=== PATIENT | male | born 1965 | race Caucasian/White ===

== ENCOUNTER 2020-06-09 20:15 | Emergency (ER) | payer OTHER ==
[~2020-06-09] VITALS: Ht 177.8 cm; Wt 86.2 kg
[2020-06-09 20:21] VITALS: Ht 177.8 cm; Wt 86.2 kg
[2020-06-09 21:32] LABS: BASOPHIL % 0.5 % (0.2-1.5); PLATELET COUNT 341 x10^3mcL (152-348)
[2020-06-09 21:35] LABS: RED CELL DISTRIBUTION WIDTH 16.5 % (12.1-16.2)
[2020-06-09 21:41] LABS: CALCIUM 8.1 mg/dL (8.5-10.1); CARBON DIOXIDE 27.6 mmol/L (21-32); CHLORIDE SERUM 104 mmol/L (98-107); CREATININE SERUM 1.2 mg/dL (0.7-1.3); GFR1 > 60 mL/min; GLUCOSE SERUM 104 mg/dL (74-106); SODIUM SERUM 139 mmol/L (136-145)
[2020-06-09 21:46] LABS: ALKALINE PHOSPHATASE 111 U/L (46-116); ALT/SGPT 92 U/L (16-63); AST/SGOT 42 U/L (15-37); BILIRUBIN TOTAL 1.1 mg/dL (0.20-1.00); TOTAL PROTEIN, SERUM 6.9 g/dL (6.4-8.2)
[2020-06-09 21:56] LABS: ALBUMIN 3.2 g/dL (3.4-5.0)
[2020-06-10 00:11] LABS: AMPHETAMINE QUAL UR POSITIVE (See below)
[2020-06-10 07:20] VITALS: BP 128/89
== END 2020-06-10 07:20 | disposition home or self-care (01) ==
LOC: ED 20:15
PROVIDERS: Emergency Medicine
DX: I50.9 Heart failure, unspecified (principal); F17.210 Nicotine dependence, cigarettes, uncomplicated; J44.9 Chronic obstructive pulmonary disease, unspecified; Z71.6 Tobacco abuse counseling
CPT/HCPCS: 83880; 99406; J1940